=== PATIENT | female | born 1975 | race Caucasian/White ===

== ENCOUNTER 2016-10-05 10:44 | Inpatient (IN) | payer BC, OTHER ==
[~2016-10-05] VITALS: Ht 167.6 cm; Wt 90.7 kg
[2016-10-05 13:45] VITALS: BP 132/71
[2016-10-05] MEDS ORDERED: DIAZEPAM 10 MG TABLET PO PRN ×2 (13:45)
[2016-10-05] MEDS ORDERED: DIAZEPAM 5 MG TABLET PO PRN (13:45)
[2016-10-05] MEDS ORDERED: ACETAMINOPHEN 325 MG TABLET PO PRN (13:45)
[2016-10-05] MEDS ORDERED: diphenhydrAMINE 50 MG CAPSULE PO PRN (13:45)
[2016-10-05] MEDS ORDERED: LOPERAMIDE HCL 2 MG CAPSULE PO PRN ×2 (13:45)
[2016-10-05] MEDS ORDERED: MAGNESIUM HYDROXIDE 30 ML LIQUID UDC PO PRN (13:45)
[2016-10-05] MEDS ORDERED: DICYCLOMINE HCL 20 MG TABLET PO PRN (13:45)
[2016-10-05] MEDS ORDERED: ONDANSETRON 4 MG/2 ML VIAL IM PRN (13:45)
[2016-10-05] MEDS ORDERED: MIRALAX 17 GM POWD.PACK PO PRN (13:45)
[2016-10-05] MEDS ORDERED: LORAZEPAM 2 MG/1 ML VIAL IM PRN (13:45)
[2016-10-05] MEDS ORDERED: MAG HYDROX/AL HYDROX/SIMETH 30 ML LIQUID UDC PO PRN (13:45)
--- NOTE | 2016-10-05 14:00 | NUR ---
Initial Assessment Pt is A&O x 4, a 41 y/o female from [facility], admitted here for Opiate dependence r/t Heroin 6-14g IV/d with last use 1g this morning and using since 2009, Benzo r/t Xanax 12-20mg PO/d with last use last night and using since age 18 years old, Klonopin PO unknown dose with occasional use when Xanax is not available with last use unknown and Soma PO unknown dose with occasional use when Xanax is not available with last use approx. 1 week ago. Pt states that she smokes cigarettes 1.5 packs per day since age 17 and smokes Cannabis started as a teenager in unknown amount occasionally with last use unknown. Pt states that her internal/pain management physician Dr. Campbell prescribes medications Xanax and Soma; no home medications brought. HHx: Insomnia, BLE Cellulitis with pedal edema, Obesity, Anemia, Bradycardia with infected Mitral Valve (endocarditics) and Thoracentesis r/t hospital acquired MRSA causing Sepsis and MODS in August 2009, July 2016 recurrent bradycardia, PNA, Acute Respiratory Failure on a ventilator at [facility], and pt was recently transferred from [facility] by the [facility] to the [facility] 09/30/2016 with recurrent bradycardia and diagnosed with UTi. Pt denies having a history of a seizure. FHx: Father used Cocaine, Mother has possible HTN and Hypothyroidism. Pt's features are symmetrical, PERRLA 3mm, no CARRERO, dizziness, denies chest pain, no SOB, N/V/D at this time but states that she was having diarrhea last night and currently has restlessness, with anxiety, agitation. Skin is not intact with bilateral BLE's +2 on right leg and +1 on left leg, bilateral pedal edema 1+ pitting, and tracts on BUE's, BLE's and abdomen. T. 97.8 HR 63 RR 16 BP 132/71 SpO2 98% RA 0/10 pain COWS 8 CIWA 7 Addendum: 10/05/16 at 1923 by JOSHUA HERNANDEZ RN Pt attended the [facility] 2017.
[2016-10-05 14:25] LABS: *URINE HCG, QUAL NEGATIVE (NEGATIVE)
[2016-10-05] MEDS ORDERED: DIAZEPAM 10 MG TABLET PO SCH ×2 (15:00→21:00)
[2016-10-05 15:11] LABS: *AMPHETAMINE, URINE NEGATIVE (NEGATIVE); *BARBITURATE, URINE NEGATIVE (NEGATIVE); *CANNABINOID, URINE NEGATIVE (NEGATIVE); *COCCAINE, URINE NEGATIVE (NEGATIVE); *OPIATE, URINE POSITIVE (NEGATIVE); *PHENCYCLIDINE SCREEN,URINE NEGATIVE (NEGATIVE)
[2016-10-05 15:37] LABS: BASOPHILS # (AUTO) 0.1 K/uL (0.0-8.0); BASOPHILS % (AUTO) 1.5 % (0.0-2.0); EOSINOPHILS # (AUTO) 0.4 K/uL (0.0-0.7); EOSINOPHILS % (AUTO) 6.3 % (0.0-7.0); HEMATOCRIT 36.4 % (37-47); LYMPHOCYTES # (AUTO) 1.6 K/uL (20.0-40.0); LYMPHOCYTES % (AUTO) 27.2 % (20.5-51.5); MEAN CORPUSCULAR HEMOGLOBIN 28.5 UUG (27.0-31.0); MEAN CORPUSCULAR HGB CONC 33 g/dL (32.0-37.0); MEAN CORPUSCULAR VOLUME 86.6 FL (81.0-99.0); MONOCYTES # (AUTO) 0.3 K/uL (2.0-10.0); MONOCYTES % (AUTO) 4.4 % (0.0-11.0); NEUTROPHILS # (AUTO) 3.6 K/uL (1.8-8.9); NEUTROPHILS % (AUTO) 60.6 % (38.5-71.5); PLATELET COUNT (AUTO) 204 K/UL (150-450)
[2016-10-05 15:42] LABS: ETHANOL < 3 MG/DL (0-0)
[2016-10-05 15:55] LABS: ALANINE AMINOTRANSFERASE 23 U/L (14-59); ALKALINE PHOSPHATASE 62 U/L (50-136); ASPARTATE AMINOTRANSFERASE 21 U/L (15-37); BILIRUBIN,TOTAL 0.3 mg/dL (0.2-1.0); CARBON DIOXIDE 32 mmol/L (21-32); CHLORIDE 103 mmol/L (98-107); CREATININE 0.7 mg/dL (0.6-1.3); GLUCOSE 109 mg/dL (74-106); MAGNESIUM 1.8 mg/dL (1.8-2.4); POTASSIUM 3.7 mmol/L (3.5-5.1); TOTAL PROTEIN, SERUM 7.7 g/dL (6.4-8.2); UREA NITROGEN, BLOOD 4 mg/dL (7-18)
[2016-10-05 16:00] VITALS: BP 122/99
[2016-10-05 16:19] LABS: THYROID STIMULATING HORMONE 0.838 mIU/mL (0.358-3.740)
--- NOTE | 2016-10-05 16:30 | NUR ---
New Orders New order for ECHO with results EF 60% and PAP 30mm HG, EKG with results NSR with HR 68bpm, Mag-Ox, K-Dur, and 10/06/16 Chem 22 and CBC.
[2016-10-05] MEDS ORDERED: MAGNESIUM OXIDE 400 MG TABLET PO ONE (16:45)
[2016-10-05] MEDS ORDERED: POTASSIUM CHLORIDE 10 MEQ CAPSULE.SA PO ONE (16:45)
--- NOTE | 2016-10-05 18:49 | NUR ---
End of the Shift Report to night nurse: pt is 41 y/o female new admit from [place] admitted here for Opiate dependence r/t Heroin 6-14g IV/d with last use 1g this morning and using since 2009, Benzo r/t Xanax 12-20mg PO/d with last use last night and using since age 18 years old, Klonopin PO unknown dose with occasional use when Xanax is not available with last use unknown and Soma PO unknown dose with occasional use when Xanax is not available with last use approx. 1 week ago; Subutex taper to start 10/06 and PRN with a scheduled Valium taper started 10/05/16. Pt is a full code, NKA, regular diet, fall and seizure precautions ordered. HHx: Insomnia, past BLE Cellulitis with existing pedal edema, Obesity, Anemia, Bradycardia, anxiety, endocarditics, Uti, MRSA causing sepsis PNA and thoracentesis, Acute Respiratory Failure smoker and multiple relapses. Skin is not intact with bilateral BLE's +2 on right leg and +1 on left leg, bilateral pedal edema 1+ pitting, and tracts on BUE's, BLE's and abdomen. V/S stable with Echo, EkG done and results WNL's. New orders for K-Dur, Mag Ox today for boarder line electrolytes, 10/06 CBC and Chem 22. No PRN's given during my shift. Last CIWA 12. Addendum: 10/05/16 at 1855 by JOSHUA HERNANDEZ RN Error: Last
--- NOTE | 2016-10-05 18:49 | NUR ---
START OF SHIFT NOTE Patient endorsed by outgoing day shift nurse. SBAR report received. Patient is a 41 years old female admitted to [facility] on 10/05/16 for Benzodiazepines and Opioid Dependence, placed on 5 Day Valium and 5 Day Subutex Taper starting on 10/06/16. NKA, Full Code, Cardiac Diet, Fall and Seizures Precautions. No Seizures History. Past Medical History: Heart failure; Endocarditis; Cardiomyopathy; Bradycardia; Anxiety disorder; Chronic tobacco use; PNA; UTI; Obesity; Anemia; BLE Pedal edema; Cellulitis; Sepsis; MRSA; Acute Respiratory Failure; Insomnia. Past Surgical History: Therapeutic thoracentesis; Breast augmentation; Cholecystectomy; Caesarean section. Substance Use: Xanax PO: " 12-20 mg PO daily since 1993; Last use on 10/05/16". Heroin IV: "6-14 grams daily since 2009. Last used 1 gram in the morning on 10/05/16". SOMA: "Used unknown dose, occasionally, when no Xanax available". Klonopin: "Used unknown dose, occasionally, when no Xanax available". Marijuana: " Occasionally with last dose unknown". Recent Hospitalization/Treatment History: [facility] on 09/30/16. MRSA done. [facility]" , 09/22/16. Transfer to [place]". "[facility]" 07/25/16". Upon endorsement patient is alert and oriented x 4. Speech is clear and soft. COWS 7; CIWA 7: Patient's anxious, agitated , pt's yawning twice,tremors can felt, pt's nasal stuffy/moist eyes; and sweating; Patient c/o bone and joints aching, and very mild headache. Patient denied N/V, and diarrhea. Patient denied SI/HI. VS: T: 98'5; HR: 65; BP: 103/69; RA O2SAT 97%; RR: 17. Pain level " 0/10". Breathing is unlabored and even. Patient denied SOB, and chest pain. Lung Sounds are clear. BS's active in all x 4 quadrants. Skin is not intact with bilateral BLE +2 on Right leg and + 1 on Left leg; Bilateral pedal edema 1+ pitting, and tracts on BUE's, BLE's, and abdomen Patient has ordered SCD Pump for both legs for HS. Skin is warm and moist by touch. ECG done with results's WNL. No PRN's given during day shift. Patient was encouraged fluids intake. Safety measure in the place by hospital policy: Call light within reach, bed in the lowest position and locked, padded rails up x2. Will continue to monitor.
[2016-10-05] MEDS ORDERED: CARI350T PO (18:58)
[2016-10-05] MEDS ORDERED: ALPR2TAB7 PO (18:58)
[2016-10-05 20:00] VITALS: BP 103/69
[2016-10-05] MEDS: GABAPENTIN 300 MG CAPSULE PO SCH (20:43)
[2016-10-05] MEDS ORDERED: BUPRENORPHINE HCL 2 MG TAB.SUBL SL PRN (21:00)
[2016-10-06] VITALS: BP 121/62
--- NOTE | 2016-10-06 01:21 | NUR ---
PRN MOTRIN PO ADMINISTRATION Patient c/o headache "10/12". Patient was assessed. Ordered PRN Motrin PO was discussed with patient. Patient's educated for actions, adverse reactions, and side effects of Motrin. Patient returned her knowledge back by verbalizing understanding. PRN Motrin PO was administrated as ordered with full glass of water. Patient tolerated well. Safety measures in the place by hospital policy: Call light within reach; Bed in the lowest position and locked; Padded rails up x2. Will to monitor closely.
--- NOTE | 2016-10-06 03:08 | NUR ---
PRN VALIUM PO ADMINISTRATION Patient c/o increased anxiety, and ask medications. Patient was assessed. CIWA 9: patient anxious, agitated, c/o chills/flushing, and sweating, patient's tremors, running nose/tears, stomach cramps, mild headache, and restlessness. Patient denies N/V, and diarrhea. PRN Valium was discussed. Patient was educated for actions, adverse reactions, and side effects of Valium. Patient returned back her knowledge by verbalizing understanding. PRN Valium PO was administrated as ordered with full glass of water. Patient tolerated well. Safety measure in the place by hospital policy: Call light within reach, bed in the lowest position and locked, padded rails up x2. Will continue to monitor.
[2016-10-06] MEDS: ONDANSETRON ODT 4 MG TAB.RAPDIS SL PRN ×2 (03:42→08:25)
--- NOTE | 2016-10-06 03:42 | NUR ---
PRN ZOFRAN PO ADMINISTRATION Patient c/o Nausea. Patient denies Vomiting and diarrhea. Patient was assessed. PRN Zofran PO was discussed. Patient's educated for actions, adverse reactions, and side effects of ordered Zofran. Patient returned back her knowledge by verbalizing understanding. PRN Zofran PO was administrated as ordered with full glass of water. Patient tolerated well. Safety measure in the place by hospital policy: Call light within reach, bed in the lowest position and locked, padded rails up x2. Will continue to monitor.
[2016-10-06 04:00] VITALS: BP 124/75
--- NOTE | 2016-10-06 04:08 | NUR ---
REASSESSMENT Patient is sleeping. Breathing is even and unlabored. RR:14. PRN Valium PO was effective. Safety measure in the place by hospital policy: Call light within reach, bed in the lowest position and locked, padded rails up x2. Will continue to monitor.
--- NOTE | 2016-10-06 04:42 | NUR ---
REASSESSMENT Patient is sleeping. Breathing is even and unlabored. RR: 15. PRN Zofran PO was effective. Safety measure in the place by hospital policy: Call light within reach, bed in the lowest position and locked, padded rails up x2. Will continue to monitor.
--- NOTE | 2016-10-06 07:08 | NUR ---
END OF SHIFT NOTE Patient is a 41 years old female admitted to [facility] on 10/05/16 for Benzodiazepines and Opioid Dependence, placed on 5 Day Valium and 5 Day Subutex Taper starting on 10/06/16. NKA, Full Code, Cardiac Diet, Fall and Seizures Precautions. No Seizures History. Past Medical History: Heart failure; Endocarditis; Cardiomyopathy; Bradycardia; Anxiety disorder; Chronic tobacco use; PNA; UTI; Obesity; Anemia; BLE Pedal edema; Cellulitis; Sepsis; MRSA; Acute Respiratory Failure; Insomnia. Past Surgical History: Therapeutic thoracentesis; Breast augmentation; Cholecystectomy; Caesarean section. Substance Use: Xanax PO: " 12-20 mg PO daily since 1993; Last use on 10/05/16". Heroin IV: "6-14 grams daily since 2009. Last used 1 gram in the morning on 10/05/16". SOMA: "Used unknown dose, occasionally, when no Xanax available". Klonopin: "Used unknown dose, occasionally, when no Xanax available". Marijuana: " Occasionally with last dose unknown". Recent Hospitalization/Treatment History: [facility] on 09/30/16. MRSA done. [facility]" , 09/22/16. Transfer to [place]". [facility]" 07/25/16". During last awake overnight counselor COWS decreased from 9 to 4; CIWA decreased from 9 to 5: Patient's presented anxious, agitated , with tremors , nasal stuffy/moist eyes; and sweating; Patient's c/o bone and joints aching, mild headache, and nausea. Patient denied vomiting and diarrhea. Patient denied SI/HI. Last VS at 04:00: T: 98'5; HR: 53; BP: 124/75; RA O2SAT 99%; RR: 17. Pain level " 0/10". Skin is not intact with bilateral BLE +2 on Right leg and + 1 on Left leg; Bilateral pedal edema 1+ pitting, and tracts on BUE's, BLE's, and abdomen Patient's ordered SCD Pump for both legs for HS. Skin is warm and moist by touch. ECG done with results's WNL. PRN Valium PO and PRN Zofran PO given to patient , and were effective. Patient slept 10 hours, intake 500 ml, voided x2. Patient was encouraged fluids intake. Safety measure in the place by hospital policy: Call light within reach, bed in the lowest position and locked, padded rails up x2. Patient endorsed to day shift nurse in stable condition. SBAR report given.
--- NOTE | 2016-10-06 07:09 | NUR ---
Start of Shift Notes: Received patient in her room. Alert and oriented x 4. Verbally responsive. Respirations even and unlabored. No SOB noted. Skin warm and dry to touch. Abdomen soft and non-distended. No complains of abdominal discomfort noted. No complains of N/V/D or constipation noted. Voids independently. Ambulatory ad manish with steady gait. Patient is a 41 year old female admitted for opiate and BZO dependence who was placed on a 5-day Subutex and Valium taper as ordered. No adverse reactions noted. Has past medical hx of BLE cellulitis, pedal edema, obesity, anemia, bradycardia, endocarditits, sepspsis, UTI, acute respiratory failure and cardiomyopathy. NKA. FULL CODE. On cardiac diet. On fall and seizure precaution. Educated patient on her current plan of care for the day and her medication regimen. Encouraged oral fluid intake and encouraged group participation to learn new skills to prevent relapse. Will continue to monitor closely.
[2016-10-06 08:00] VITALS: BP 118/63
[2016-10-06] MEDS: BUPRENORPHINE HCL 2 MG TAB.SUBL SL SCH ×4 (08:24→20:21)
[2016-10-06] MEDS: DIAZEPAM 10 MG TABLET PO SCH ×4 (08:25→20:22)
[2016-10-06] MEDS: MULTIVITAMINS,THERAPEUTIC TABLET PO SCH (08:25)
[2016-10-06] MEDS: CLONIDINE HCL 0.1 MG TABLET PO PRN (08:25)
[2016-10-06] MEDS: METHOCARBAMOL 750 MG TABLET PO PRN ×2 (08:25→23:23)
[2016-10-06] MEDS: GABAPENTIN 300 MG CAPSULE PO SCH ×3 (08:25→20:21)
--- NOTE | 2016-10-06 08:25 | NUR ---
PRN Clondine, Zofran, Bentyl and Robaxin given: Patient noted with complain of nausea, no emesis reported. 7/10 muscle aches and pains, chills, sweats, and abdominal cramps. COWS 13. medicated patient with Zofran 4 mg, Clonidine 0.1 mg, Robaxin 750mg and Bentyl 20 mg PO. Will monitor for effectiveness.
[2016-10-06] MEDS ORDERED: TUBERCULIN,PURIF.PROT.DERIV. 5 TU/0.1 ML TEST ID ONE (09:00)
--- NOTE | 2016-10-06 09:25 | NUR ---
Re-assessment: Per patient, PRN Clonidine, Bentyl, Zofran and Robaxin were effective in reducing chlls, anxiety, hot flashes, abdominal cramps,muscle aches and nausea. Addendum: 10/06/16 at 0957 by RADHA P[address]SON LVN PL at time of re-assessment is 08/12.
--- NOTE | 2016-10-06 11:12 | NUR ---
Subutex 4mg SL x 1 and Valium 10 mg PO x 1 given: COWS 21/CIWA 18. Notified Dr. Thompson. Patient appears anxious, flushed, sweating, complains of chills, hot flashes, muscle twitching, gross tremors, frequently shifting body movement with piloerection of the skin. Dr. Thompson aware. Medicated patient with Subutex 4 mg SL and Valium 10 mg PO as ordered. Will monitor for effectiveness.
[2016-10-06] MEDS ORDERED: BUPRENORPHINE HCL 2 MG TAB.SUBL SL ONE ×2 (11:15→18:30)
[2016-10-06] MEDS ORDERED: DIAZEPAM 10 MG TABLET PO ONE ×2 (11:15→18:30)
--- NOTE | 2016-10-06 11:42 | NUR ---
Re-assessment: Subutex 4 mg SL Patient's COWS 12, less anxiety noted, skin is smooth, less tremors noted. PRN Subutex was effective in reducing patient's withdrawal symptoms.
[2016-10-06 12:00] VITALS: BP 134/73
--- NOTE | 2016-10-06 12:12 | NUR ---
Re-assessment: Valium 10 mg PO CIWA 12. Per patient, PRN Valium was effective in reducing her withdrawal symptoms. Less anxiety, less tremors and less sweating noted.
--- NOTE | 2016-10-06 12:30 | NUR ---
Subutex 4 mg SL and Valum 10 mg PO at 1300 given at this time: Patient has the above scheduled meds at this time. a x 1 dose of Valium and Subutex were just given at 1111. Verified with MD Thompson if OK to give, per MD CAMPBELL to give at this time.
--- NOTE | 2016-10-06 13:45 | NUR ---
Cardology Consult: Patient was seen and examined by Dr. Azar and will enter in orders.
[2016-10-06 15:30] LABS: BASOPHILS # (AUTO) 0.1 K/uL (0.0-8.0); BASOPHILS % (AUTO) 0.8 % (0.0-2.0); EOSINOPHILS # (AUTO) 0.2 K/uL (0.0-0.7); EOSINOPHILS % (AUTO) 3.4 % (0.0-7.0); HEMATOCRIT 38.9 % (37-47); HEMOGLOBIN 12.3 G/DL (12.0-16.0); LYMPHOCYTES # (AUTO) 1.5 K/uL (20.0-40.0); LYMPHOCYTES % (AUTO) 21.9 % (20.5-51.5); MEAN CORPUSCULAR HEMOGLOBIN 27.6 UUG (27.0-31.0); MEAN CORPUSCULAR HGB CONC 32 g/dL (32.0-37.0); MONOCYTES # (AUTO) 0.5 K/uL (2.0-10.0); MONOCYTES % (AUTO) 7.3 % (0.0-11.0); NEUTROPHILS # (AUTO) 4.4 K/uL (1.8-8.9); NEUTROPHILS % (AUTO) 66.6 % (38.5-71.5); PLATELET COUNT (AUTO) 217 K/UL (150-450); RED BLOOD CELL COUNT(AUTO) 4.47 MIL/UL (4.2-5.4); WHITE BLOOD COUNT (AUTO) 6.7 K/UL (4.0-11.2)
[2016-10-06 15:56] LABS: CREATININE 0.8 mg/dL (0.6-1.3); MAGNESIUM 2.1 mg/dL (1.8-2.4); PHOSPHOROUS 3.6 mg/dL (2.5-4.9); POTASSIUM 4.4 mmol/L (3.5-5.1)
[2016-10-06 16:00] VITALS: BP 131/74
--- NOTE | 2016-10-06 18:20 | NUR ---
MD Communication: Patient's COWS 13, CIWA 15, patient presented with sweats, frequent body shifting, abdominal cramps, appears flushed and fidgety. Communicated with MD Thompson. Orders obtained for patient to have x 1 dose of Subutex 4 mg SL x 1 now and Valium 10 mg PO x 1 now. MD unable to enter in orders at this time. Will continue to monitor closely.
--- NOTE | 2016-10-06 18:28 | NUR ---
Subutex 4mg SL x 1 and Valium 10 mg PO x 1 given: COWS 13/CIWA 15. Subutex 4 mg SL given at this time and Valium 10 mg PO given. Will monitor for effectiveness.
--- NOTE | 2016-10-06 18:58 | NUR ---
Re-assessment: Subutex 4mg SL Patient's COWS 10. PRN Subutex has been effective in reducing patient's withdrawal symptoms. Re-assessment for Valium 10 mg PO will be re-assessed by night nurse.
--- NOTE | 2016-10-06 19:02 | NUR ---
End of Shift Notes: Patient is a 41 year old female admitted for opiate and BZO dependence who was placed on a 6-day Ativan and 6-day Subutex taper as ordered. No adverse reactions noted. Has past medical hx of insomnia, BLE cellulitis, pedal edema, obesity, anemia, bradycardia, endocarditis, sepsis, MRSA, UTI, PNA, acute respiratory failyre and cardiomyopathy. Prior to admission, patient was using 6-14 grams of IV Heroin and 12-20 mg of Xanax. Initial COWS at 0800 was 13, CIWA 13, patient presented with nausea, muscle aches and pain, chills, hot flashes, sweating, facial flushing, fatigue, abdominal discomfort and anxiety. At 111 COWS 21/CIWA 18. Dr. Thompson aware and ordered Subutex 4 mg and Valium 10 mg PO x 2 doses during the day as ordered due to high COWS and CIWA. Patient seen with frequent body shifting, pupil dilation, muscle aches, and piloerection of the skin. Medicated patient with Zofran, Robaxin, Clonidine, Bentyl at 0825 with help after 1 hour. Last COWS 10, CIWA 13. Seen and examined by monotype mechanic with new orders for labs. Encouraged to keep BLE elevated due to edema. Unable to participate in group and therapy sessions due to her withdrawal symptoms. Oral fluids encouraged. All needs met and attended. Will continue to monitor closely.
--- NOTE | 2016-10-06 19:02 | NUR ---
START OF SHIFT NOTE Patient endorsed by day shift nurse. SBAR report received. Patient is a 41 years old female admitted to [facility] on 10/05/16 for Benzodiazepines and Opioid Dependence, placed on 5 Day Valium and 5 Day Subutex Taper starting on 10/06/16. NKA, Full Code, Cardiac Diet, Fall and Seizures Precautions. No Seizures History. Past Medical History: Heart failure; Endocarditis; Cardiomyopathy; Bradycardia; Anxiety disorder; Chronic tobacco use; PNA; UTI; Obesity; Anemia; BLE Pedal edema; Cellulitis; Sepsis; MRSA; Acute Respiratory Failure; Insomnia. Past Surgical History: Therapeutic thoracentesis; Breast augmentation; Cholecystectomy; Caesarean section. Substance Use: Xanax PO: " 12-20 mg PO daily since 1993; Last use on 10/05/16". Heroin IV: "6-14 grams daily since 2009. Last used 1 gram in the morning on 10/05/16". SOMA: "Used unknown dose, occasionally, when no Xanax available". Klonopin: "Used unknown dose, occasionally, when no Xanax available". Marijuana: " Occasionally with last dose unknown". Recent Hospitalization/Treatment History: [facility] on 09/30/16. MRSA done. [facility]" , 09/22/16. Transfer to [place]". "[facility]" 07/25/16". Upon endorsement patient is alert and oriented x 4. Speech is clear and soft. COWS 7; CIWA 9: Patient's anxious, agitated , tremors, pt's nasal stuffy/moist eyes; and sweating; Patient c/o bone and joints aching, and headache. Patient denied N/V, and diarrhea. Patient denied SI/HI. VS: T: 98'6; HR: 56; BP: 127/79; RA O2SaT 100%; RR: 17. Pain level " 3/10". Breathing is unlabored and even. Patient denied SOB, and chest pain. Lung Sounds are clear. BS's active in all x 4 quadrants. Skin is not intact with bilateral BLE +2 on Right leg and + 1 on Left leg; Bilateral pedal edema 1+ pitting, and tracts on BUE's, BLE's, and abdomen Patient has ordered SCD Pump for both legs for HS. Skin is warm and moist by touch. Patient was encouraged oral fluids intake. Patient unable attended activities due to withdrawal s/s. Safety measure in the place by hospital policy: Call light within reach, bed in the lowest position and locked, padded rails up x2. Will continue to monitor.
[2016-10-06 20:00] VITALS: BP 127/79
--- NOTE | 2016-10-06 20:12 | NUR ---
PRN IMODIUM PO ADMINISTRATION Patient c/o diarrhea x3. Patient was assessed. Patient was encouraged for plenty fluids intake. PRN Imodium PO discussed with patient. Patient's educated for actions, adverse reactions, and side effects of Imodium. Patient returned her knowledge back by verbalizing understanding. PRN Imodium PO was administrated as ordered with full glass of water. Patient tolerated well. Safety measures in the place by hospital policy: Call light within reach; Bed in the lowest position and locked; Padded rails up x2. Will to monitor closely. Addendum: 10/06/16 at 2330 by SOHAM RODRIGUEZ RN error: wrong patient
--- NOTE | 2016-10-06 20:21 | NUR ---
PRN BENADRYL PO ADMINISTRATION Patient c/o insomnia. Patient was assessed. Ordered PRN Benadryl PO was discussed with patient. Patient's educated for actions, adverse reactions, and side effects of Benadryl. Patient returned her knowledge back by verbalizing understanding. PRN Benadryl PO was administrated as ordered with full glass of water. Patient tolerated well. Safety measures in the place by hospital policy: Call light within reach; Bed in the lowest position and locked; Padded rails up x2. Will to monitor closely.
--- NOTE | 2016-10-06 21:21 | NUR ---
REASSESSMENT Patient is sleeping. Breathing is unlabored and even. RR: 14. PRN Benadryl PO was effective.Safety measures in the place by hospital policy:Call light within reach; Bed in the lowest position and locked; Padded rails up x2. Will to monitor closely.
--- NOTE | 2016-10-06 23:23 | NUR ---
PRN ROBAXIN PO ADMINISTRATION Patient c/o muscles spasm. Patient was assessed. Ordered PRN Robaxin PO was discussed with patient. Patient's educated for actions, adverse reactions, and side effects of Robaxin. Patient returned her knowledge back by verbalizing understanding. PRN Robaxin PO was administrated as ordered with full glass of water. Patient tolerated well. Safety measures in the place by hospital policy: Call light within reach; Bed in the lowest position and locked; Padded rails up x2. Will to monitor closely.
[2016-10-07] VITALS: BP 114/54
--- NOTE | 2016-10-07 00:23 | NUR ---
REASSESSMENT Patient is sleeping. Breathing is unlabored and even. RR:15. PRN Robaxin PO was effective. Safety measures in the place by hospital policy: Call light within reach; Bed in the lowest position and locked; Padded rails up x2. Will to monitor closely.
[2016-10-07] MEDS: IBUPROFEN 600 MG TABLET PO PRN (01:21)
[2016-10-07 04:00] VITALS: BP 123/71
--- NOTE | 2016-10-07 07:11 | NUR ---
END OF SHIFT NOTE Patient is a 41 years old female admitted to [facility] on 10/05/16 for Benzodiazepines and Opioid Dependence, placed on 5 Day Valium and 5 Day Subutex Taper starting on 10/06/16. NKA, Full Code, Cardiac Diet, Fall and Seizures Precautions. No Seizures History. Past Medical History: Heart failure; Endocarditis; Cardiomyopathy; Bradycardia; Anxiety disorder; Chronic tobacco use; PNA; UTI; Obesity; Anemia; BLE Pedal edema; Cellulitis; Sepsis; MRSA; Acute Respiratory Failure; Insomnia. Past Surgical History: Therapeutic thoracentesis; Breast augmentation; Cholecystectomy; Caesarean section. Substance Use: Xanax PO: " 12-20 mg PO daily since 1993; Last use on 10/05/16". Heroin IV: "6-14 grams daily since 2009. Last used 1 gram in the morning on 10/05/16". SOMA: "Used unknown dose, occasionally, when no Xanax available". Klonopin: "Used unknown dose, occasionally, when no Xanax available". Marijuana: " Occasionally with last dose unknown". Recent Hospitalization/Treatment History: [facility] on 09/30/16. MRSA done. [facility]" , 09/22/16. Transfer to [place]". "[facility]" 07/25/16".Last COWS 7, CIWA 7: Patient's presented anxious, agitated , with tremors , nasal stuffy/moist eyes; diarrhea, sweating, bone and joints aching, mild headache. Patient denied vomiting .Patient denied SI/HI. Last VS at 04:00: T: 98'4; HR: 60; BP: 123/71; RA O2SAT 99%; RR: 18. Pain level " 0/10". Skin is not intact with bilateral BLE +2 on Right leg and + 1 on Left leg; Bilateral pedal edema 1+ pitting, and tracts on BUE's, BLE's, and abdomen Patient's ordered SCD Pump for both legs for HS. Skin is warm and moist by touch. PRN Benadryl PO, PRN Robaxin PO, PRN Motrin, a were effective. Patient slept 5,5 hours, intake 1,437ml, voided x3. Patient was encouraged oral fluids intake. Safety measure in the place by hospital policy: Call light within reach, bed in the lowest position and locked, padded rails up x2. Patient endorsed to day shift nurse in stable condition. SBAR report given.
--- NOTE | 2016-10-07 07:30 | NUR ---
Start of shift note; Patient is AOX4. Received report from night nurse. Patient is a 41 year old female admitted on 10/05/16 for Opiate and Benzodiazepine dependence. Patient was placed on a 6 day Subutex and Valium taper, no adverse reaction noted. Patient reported history of insomnia, BLE cellulitis, anemia, bradycardia, endocarditis, sepsis, URI, PNA, acute respiratory failure and cardiomyopathy. Patient is on fall and seizure precautions. Patient appears very anxious, crying, sweaty palms redirected as needed. Bed in lowest position, call light within reach. Will continue to monitor patient.
[2016-10-07 08:00] VITALS: BP 125/74
[2016-10-07] MEDS: DIAZEPAM 10 MG TABLET PO SCH ×4 (08:28→20:20)
[2016-10-07] MEDS: GABAPENTIN 300 MG CAPSULE PO SCH ×3 (08:28→20:20)
[2016-10-07] MEDS: BUPRENORPHINE HCL 2 MG TAB.SUBL SL SCH ×4 (08:28→20:20)
[2016-10-07] MEDS: MULTIVITAMINS,THERAPEUTIC TABLET PO SCH (08:28)
[2016-10-07] MEDS ORDERED: BUPRENORPHINE HCL 2 MG TAB.SUBL SL ONE (11:15)
[2016-10-07] MEDS ORDERED: DIAZEPAM 10 MG TABLET PO PRN ×4 (11:15→14:15)
[2016-10-07] MEDS ORDERED: DIAZEPAM 10 MG TABLET PO ONE (11:15)
[2016-10-07] MEDS ORDERED: DIAZEPAM 5 MG TABLET PO PRN ×2 (11:15→14:15)
[2016-10-07] MEDS ORDERED: BUPRENORPHINE HCL 2 MG TAB.SUBL SL PRN ×2 (11:15→14:15)
--- NOTE | 2016-10-07 11:39 | NUR ---
New orders; Patient still appears to anxious, agitated, complaining of muscle aches, chills and diaphoresis. Patient current BP is 122/76 with HR of 65, COWS of 8 and CIWA of 8. MD ordered one time dose of Valium 10mg PO and one time order of Subutex 4mg SL. Will continue to monitor patient.
[2016-10-07 12:00] VITALS: BP 126/77
--- NOTE | 2016-10-07 12:39 | NUR ---
Re-assessment; Patient appears calm and comfortable at this time although still manifesting mild anxiety and agitation, decrease in chill/diaphoresis noted, less muscle cramps verbalized with current COWS score of 5 and CIWA score of 4. Will continue to monitor patient.
[2016-10-07 13:06] LABS: HEPATITIS B SURFACE AG Negative (Negative)
--- NOTE | 2016-10-07 14:28 | NUR ---
MD communication and new order; MD notified of patient's LAB results and MRSA nares result, MD placed patient on contact isolation and ordered Bactroban 2% ointment Q12HR. Educated patient regarding MRSA and infection control, patient verbalized understanding.
[2016-10-07] MEDS: DICYCLOMINE HCL 20 MG TABLET PO SCH ×2 (15:48→20:20)
[2016-10-07] MEDS: BACLOFEN 10 MG TABLET PO SCH ×2 (15:48→20:20)
--- NOTE | 2016-10-07 15:58 | NUR ---
LAB staff communication; Received a phone call from LAB regarding MRSA result. MD was notified already, patient was already placed on contact isolation and on Bactroban treatment Q12H. Will continue to monitor patient.
[2016-10-07 16:00] VITALS: BP 130/88
--- NOTE | 2016-10-07 18:26 | NUR ---
End of shift note; Patient is AOX4. Patient is a 41 year old female admitted on 10/05/16 for Opiate and Benzodiazepine dependence. Patient was placed on a 6 day Subutex and Valium taper, no adverse reaction noted. Patient reported history of insomnia, BLE cellulitis, anemia, bradycardia, endocarditis, sepsis, URI, PNA, acute respiratory failure and cardiomyopathy. Patient is on fall and seizure precautions. Patient remained compliant with medication regime. Medications were effective in reducing withdrawal symptoms. Patient was placed on contact isolation for MRSA nares positive, educated patient regarding infection control, verbalized understanding. Isolation precautions observed. All safety measures secured. Met all needs. Addendum: 10/07/16 at 1907 by SONYA RODRIGUEZ LVN Patient is has a tendency to be a med-seeker and has a tendency to show inappropriate behavior. Redirected patient as needed. Educated patient regarding unit policies and protocols.
--- NOTE | 2016-10-07 19:10 | NUR ---
Start of Shift Patient Received. Patient is in her room, awake, alert and verbally responsive. Patient verbalizing "I need my medications. I dont feel good." Explained to patient that medications were due at approx 1999. Patient verbalized "ill just go outside to smoke." Patient is a 41 year old female, admitted on 10/05/16 for Opiate and Benzo Dependence, under the care of Dr. Thompson. Patient is currently receiving both 6 day Valium and Subutex tapers. Patient verbalizes no known allergies, wishes to be full code, following a regular diet, placed on fall and seizure precautions. Past medical history verbalized as Heart failure, Bradycardia, Anxiety disorder, Obesity, Edema, anemia, endocarditis, sepsis, MRSA, UTI, and PNA. Per endorsement, patient was placed on 1:1 for positive result for MRSA of Nares and will start on Bactroban Q12h with first dose to be given tonight 2100. Patient is noted with episodes of inappropriate behavior, medication seeking, and high risk for AMA. All needs attended to promptly. will continue to monitor.
[2016-10-07 20:18] VITALS: BP 138/85
[2016-10-07] MEDS: MUPIROCIN 2% OINT 22 GM TUBE NS SCH (20:20)
--- NOTE | 2016-10-07 20:30 | NUR ---
MD Communication Patient verbalizing increase nasal congestion. Relayed information to MD with new order for Flonase BID with first dose to be given tonight 2030. Will administer medication when available.
[2016-10-07] MEDS ORDERED: TRAZODONE 100 MG TABLET PO SCH (21:00)
[2016-10-07] MEDS: FLUTICASONE PROP NASAL SPRAY 16 GM BOTTLE NS SCH (21:21)
[2016-10-08] VITALS (8 sets, daily range): BP systolic 94–138; BP diastolic 48–95
[2016-10-08] MEDS: METHOCARBAMOL 750 MG TABLET PO PRN (03:39)
[2016-10-08] MEDS: HYDROXYZINE PAMOATE 25 MG CAPSULE PO PRN (03:39)
[2016-10-08] MEDS: CLONIDINE HCL 0.1 MG TABLET PO PRN ×2 (03:39→14:25)
--- NOTE | 2016-10-08 03:40 | NUR ---
PRN Medication Reassessment/ PRN Medication administration Patient noted awake and verbalizing "this happens every single night. I wake up feeling like crap." Patient noted to be restless, verbalizing increased anxiety, noted to be agitated, and verbalizing muscle spasms of the lower back. Patient also verbalizing inability of falling back to sleep. PRN Clonidine, Robaxin, Vistaril administered. PRN Trazodone not effective. Will continue to monitor.
--- NOTE | 2016-10-08 04:36 | NUR ---
PRN Medication Reassessment Patient noted awake in bed eating cereal. Patient able to verbalize "the medication helped but I still cant sleep." PRN Clonidine, Robaxin, and Vistaril noted to be effective. Will continue to monitor.
--- NOTE | 2016-10-08 07:07 | NUR ---
End of Shift Patient is in bed awake, alert and verbally responsive. Breathing even and non labored. No signs of pain or discomfort noted. Patient is a 41 year old female, admitted on 10/05/16 for Opiate and Benzo Dependence, under the care of Dr. Thompson. Patient is currently receiving both 6 day Valium and Subutex tapers. Patient verbalizes no known allergies, full code, regular diet, fall and seizure precautions. Past medical history verbalized as Heart failure, Bradycardia, Anxiety disorder, Obesity, Edema, anemia, endocarditis, sepsis, MRSA, UTI, and PNA. Patient remains on Isolation for positive result of MRSA of nares. Patient started on Bactroban Q12h. Patient was given PRN Clonidine, Vistaril, and Robaxin for increased signs and symptoms of withdrawal. PRN Medications noted to be effective. Patient noted awake with inability of falling back asleep and is requesting for a change in sleep aid. Will endorse to AM shift to follow up. No episodes of behavior noted. All needs attended to promptly. Will endorse to continue plan of care as ordered.
--- NOTE | 2016-10-08 07:08 | NUR ---
Start of Shift Notes: Received patient in her room. Alert and oriented x 4. Verbally responsive. Respirations even and unlabored. No SOB noted. Skin warm and dry to touch. Abdomen soft and non-distended. No complains of abdominal discomfort noted. No complains of N/V/D or constipation noted. Voids independently. Ambulatory ad manish with steady gait. Patient is a 41 year old female admitted for opiate and BZO dependence who was placed on a 5-day Subutex and Valium taper as ordered. No adverse reactions noted. Has past medical hx of BLE cellulitis, pedal edema, obesity, anemia, bradycardia, endocarditits, sepspsis, UTI, acute respiratory failure and cardiomyopathy. NKA. FULL CODE. On cardiac diet. Educated patient on her current plan of care for the day and her medication regimen. Patient is on contact isolation for MRSA of the nares. All needs met and attended. Will continue to monitor closely.
[2016-10-08] MEDS: DICYCLOMINE HCL 20 MG TABLET PO SCH ×3 (08:18→22:36)
[2016-10-08] MEDS: GABAPENTIN 300 MG CAPSULE PO SCH ×3 (08:18→22:37)
[2016-10-08] MEDS: BUPRENORPHINE HCL 2 MG TAB.SUBL SL SCH ×3 (08:18→22:37)
[2016-10-08] MEDS: MULTIVITAMINS,THERAPEUTIC TABLET PO SCH (08:18)
[2016-10-08] MEDS: DIAZEPAM 10 MG TABLET PO SCH ×3 (08:18→22:37)
[2016-10-08] MEDS: BACLOFEN 10 MG TABLET PO SCH ×3 (08:18→22:37)
[2016-10-08] MEDS: MUPIROCIN 2% OINT 22 GM TUBE NS SCH ×2 (08:18→22:36)
[2016-10-08] MEDS: FLUTICASONE PROP NASAL SPRAY 16 GM BOTTLE NS SCH ×2 (08:19→17:00)
--- NOTE | 2016-10-08 09:00 | NUR ---
Hep C Results: Hep C results shows >11.0. Notified Dr. Junior. Per Md, he will speak to the patient.
--- NOTE | 2016-10-08 10:00 | NUR ---
MD Communication: Behavior Patient noted to come to the nurses station and stated "I want more meds." Reinforcement was provided to the patient. Patient was medicated with her scheduled meds at 0800 but patient still wanted more stating "I don't feel good." VS checked and are stable. COWS 5, CIWA 4. Patient was informed of her medication regimen but demanded to speak with Dr. Thompson. Informed the patient that Dr. Junior was supervisor production but patient continues to demand for Dr. Thompson to be called. Stated "Tell Dr. Thompson I want to talk to him now even though he is not working today." Dr. Junior was informed of patient's behavior and will speak to the patient.
--- NOTE | 2016-10-08 12:00 | NUR ---
Behavior: Patient comes to the nurses station again and demanded for more meds. Patient started to become rude to the staff by using foul language and being overly demanding. VS checked 102/58, Pulse 60. Patient was also seen by speaking to her peers about her drug use, how much milligrams of Subutex she was taking and also what to do to get more Subutex. Patient was immediately redirected and informed of unit's rules. Patient was becoming rude to the staff and would also talk to her about meds. Charge nurse and MD informed.
[2016-10-08 12:24] LABS: BILIRUBIN,DIRECT 0.1 mg/dL (0.0-0.2); BILIRUBIN,TOTAL 0.2 mg/dL (0.2-1.0); CREATININE 0.8 mg/dL (0.6-1.3); MAGNESIUM 1.9 mg/dL (1.8-2.4); PHOSPHOROUS 4.6 mg/dL (2.5-4.9); TOTAL PROTEIN, SERUM 8.2 g/dL (6.4-8.2)
[2016-10-08 13:40] LABS: HEMOGLOBIN 12.8 G/DL (12.0-16.0); MEAN CORPUSCULAR HEMOGLOBIN 28.3 UUG (27.0-31.0); MEAN CORPUSCULAR VOLUME 86.4 FL (81.0-99.0); RED BLOOD CELL COUNT(AUTO) 4.52 MIL/UL (4.2-5.4); WHITE BLOOD COUNT (AUTO) 5.6 K/UL (4.0-11.2)
[2016-10-08 13:42] LABS: BASOPHILS % (AUTO) 0.7 % (0.0-2.0); EOSINOPHILS # (AUTO) 0.6 K/uL (0.0-0.7); LYMPHOCYTES # (AUTO) 1.9 K/uL (20.0-40.0); LYMPHOCYTES % (AUTO) 34.9 % (20.5-51.5); MEAN CORPUSCULAR HGB CONC 33 g/dL (32.0-37.0); MONOCYTES # (AUTO) 0.7 K/uL (2.0-10.0); NEUTROPHILS # (AUTO) 2.4 K/uL (1.8-8.9); NEUTROPHILS % (AUTO) 42.4 % (38.5-71.5); PLATELET COUNT (AUTO) 224 K/UL (150-450)
--- NOTE | 2016-10-08 14:00 | NUR ---
Behavior: Patient started to use foul language again and acting inappropriately while nurse is inside her room. Patient was redirected and was informed of facility rules and medication regimen. Patient appears upset that she was not getting enough Subutex. Dr. Junior in the unit and informed MD of patient's behavior and MD spoke to the patient. aligning inspector, Mike, was informed.
--- NOTE | 2016-10-08 17:50 | NUR ---
Flonase at 1700 not administered: Patient seen laying in bed with eyes closed. RR 16. Flonase at 1700 was held. MD matta.
--- NOTE | 2016-10-08 18:14 | NUR ---
ID Consult: Patient was seen by Dr. Aranda (infections disease MD) with new orders. Orders noted and carried out. Crystal (pillowcase folder) made aware of request for medical records.
--- NOTE | 2016-10-08 18:44 | NUR ---
End of Shift Notes: Patient is a 41 year old female admitted for opiate and BZO dependence who was placed on a 6-day Ativan and 6-day Subutex taper as ordered. No adverse reactions noted. Has past medical hx of insomnia, BLE cellulitis, pedal edema, obesity, anemia, bradycardia, endocarditis, sepsis, MRSA, UTI, PNA, acute respiratory failyre and cardiomyopathy. Prior to admission, patient was using 6-14 grams of IV Heroin and 12-20 mg of Xanax. Initial COWS 9, CIWA 7, patient presented with muscle aches and pain, chills, hot flashes, sweating, facial flushing, fatigue, abdominal discomfort and anxiety. Last COWS 4/CIWA 4. Encouraged to keep BLE elevated due to edema. Unable to participate in group and therapy sessions due to her withdrawal symptoms. Patient appears to med seek, asking for more medications and attempting to manipulate her symptoms. Redirected and reassurance was provided. Reinforcement of facility rules were made. Oral fluids encouraged. All needs met and attended. Will continue to monitor closely.
--- NOTE | 2016-10-08 19:10 | NUR ---
Start of Shift Patient Received. Patient is in her room sleeping, breathing even and non labored. No signs of pain or discomfort noted. Patient is a 41 year old female, admitted on 10/05/16 for Opiate and Benzo Dependence, under the care of Dr. Thompson. Patient is currently receiving both 6 day Valium and Subutex tapers. Patient verbalizes no known allergies, wishes to be full code, following a regular diet, placed on fall and seizure precautions. Past medical history verbalized as Heart failure, Bradycardia, Anxiety disorder, Obesity, Edema, anemia, endocarditis, sepsis, MRSA, UTI, and PNA. Per endorsement, patient was placed on isolation for MRSA of Nares and continues on Bactroban Q12H. Patient continues with inappropriate behavior towards staff members, also noted to be medication seeking, and threatening to leave AMA if medications are not received. Patients lab resulted and patient is noted to be Hep C+ with MD aware. All needs attended to promptly. will continue to monitor.
--- NOTE | 2016-10-08 20:30 | NUR ---
Patient Assessment Patient noted sleeping and attempted to administer medication multiple times. Vitals rendered and noted to be lower than parameters ordered. Will continue to monitor.
--- NOTE | 2016-10-08 21:50 | NUR ---
Late Medication Administration Patient then noted awake with increased agitation, and requesting her scheduled medication. Attempted to reassess patient but patient requesting to use the bathroom and change her clothes. Vitals reassessed and noted to be within normal limits. Medications administered as ordered. All needs attended to promptly. Will continue to monitor.
[2016-10-08] MEDS: TRAZODONE 100 MG TABLET PO SCH (22:36)
[2016-10-09 00:20] VITALS: BP 112/56
[2016-10-09 04:13] VITALS: BP 109/68
[2016-10-09] MEDS: HYDROXYZINE PAMOATE 25 MG CAPSULE PO PRN (04:15)
[2016-10-09] MEDS: CLONIDINE HCL 0.1 MG TABLET PO PRN ×2 (04:15→10:42)
[2016-10-09] MEDS: METHOCARBAMOL 750 MG TABLET PO PRN ×2 (04:15→10:42)
--- NOTE | 2016-10-09 04:23 | NUR ---
PRN Medication Administration Patient noted awake and verbalizing increased muscle spasms of the lower leg, increased anxiety, and agitation due to patients inability of remaining asleep throughout the night. Patient verbalizes "I dont understand I just cant sleep. Im wide awake. I dont feel good." PRN Clonidine, Vistaril, and Robaxin administered. PRN Trazodone not effective. Patient then noted to go outside to smoke. Will continue to monitor.
--- NOTE | 2016-10-09 07:16 | NUR ---
End of Shift Patient is awake, alert and verbally responsive. Breathing even and non labored. Patient is a 41 year old female, admitted on 10/05/16 for Opiate and Benzo Dependence, under the care of Dr. Thompson. Patient is currently receiving both 6 day Valium and Subutex tapers. Patient verbalizes no known allergies, full code, following a regular diet, placed on fall and seizure precautions. Past medical history verbalized as Heart failure, Bradycardia, Anxiety disorder, Obesity, Edema, anemia, endocarditis, sepsis, MRSA, UTI, and PNA. Patient continues on isolation for MRSA of the Nares and continues on Bactroban Q12H. No episodes of behavior noted but patient verbalizes "I just feel like my taper is moving to quickly and Im just feeling sick. Im still not sleeping at night and its making this very difficult." Patient Received PRN Clonidine, Robaxin, and Vistaril and patient states "it didn't take away all the symptoms it just minimized it to tolerable but they are still there." Patient continues to be a high risk for AMA. All needs attended to promptly. will endorse to continue to monitor.
--- NOTE | 2016-10-09 07:44 | NUR ---
START OF SHIFT NOTE: Received report from night warehouse selector nurse. Patient is a 41 year old female, admitted on 10/05/16 for Opiate and Benzo Dependence. Currently on a 6 day Valium and 6 day Subutex tapers. Pt is alert and oriented x4. Color good, skin warm and dry. Respirations even and unlabored. Safety precautions observed. Call light within reach. Will continue to monitor.
[2016-10-09 08:00] VITALS: BP 128/76
[2016-10-09] MEDS ORDERED: BUPRENORPHINE HCL 2 MG TAB.SUBL SL SCH ×3 (09:00→17:00)
--- NOTE | 2016-10-09 09:00 | NUR ---
VSS CIWA 16 COWS 10. Pt very anxious and agitated. Dr. Junior aware.
[2016-10-09] MEDS: DIAZEPAM 5 MG TABLET PO SCH ×4 (09:29→20:56)
[2016-10-09] MEDS: FLUTICASONE PROP NASAL SPRAY 16 GM BOTTLE NS SCH ×2 (09:29→16:57)
[2016-10-09] MEDS: DICYCLOMINE HCL 20 MG TABLET PO SCH ×3 (09:29→20:56)
[2016-10-09] MEDS: GABAPENTIN 300 MG CAPSULE PO SCH ×3 (09:29→20:55)
[2016-10-09] MEDS: BACLOFEN 10 MG TABLET PO SCH ×3 (09:29→20:56)
[2016-10-09] MEDS: MULTIVITAMINS,THERAPEUTIC TABLET PO SCH (09:29)
[2016-10-09] MEDS: MUPIROCIN 2% OINT 22 GM TUBE NS SCH ×2 (09:30→20:59)
--- NOTE | 2016-10-09 10:30 | NUR ---
Robaxin 750mg po prn and Clonidine 0.1mg po prn given for body aches.
--- NOTE | 2016-10-09 11:30 | NUR ---
Pt states muscle aches decreased after Clonidine and Robaxin prn.
[2016-10-09] MEDS: BUPRENORPHINE HCL 2 MG TAB.SUBL SL SCH ×2 (13:19→20:57)
--- NOTE | 2016-10-09 13:21 | NUR ---
VSS COWS 9 CIWA 10 c/o body aches and anxiety along with agitation.
[2016-10-09 13:38] VITALS: BP 98/72
--- NOTE | 2016-10-09 16:59 | NUR ---
VSS COWS 12 CIWA 11 c/o anxiety, chills, runny nose body aches
[2016-10-09 18:08] VITALS: BP 112/60
--- NOTE | 2016-10-09 18:47 | NUR ---
END OF SHIFT NOTE: Report given to shift mechanic nurse . Patient is a 41 year old female, admitted on 10/05/16 for Opiate and Benzo Dependence. Currently on a 6 day Valium and 6 day Subutex tapers. Tolerating well. Pt is alert and oriented x4. Color good, skin warm and dry. Respirations even and unlabored. Vital signs have remained stable throughout shift. Robaxin 750mg po prn and Clonidine 0.1mg po prn given for body aches @ 1030. Last COWS 12 CIWA 11@ 1700. Safety precautions observed. Call light within reach.
--- NOTE | 2016-10-09 19:30 | NUR ---
START OF SHIFT Received report from day shift,Patient is a 41 year old female, admitted on 10/05/16 for Opiate and Benzo Dependence. Currently on a 6 day Valium and 6 day Subutex tapers. Tolerating well. Pt is alert and oriented x4. Color good, skin warm and dry. Respirations even and unlabored. Vital signs have been stable. Last COWS 12 CIWA 11@ 1700. Safety precautions observed. Side rails X 2 up, call light within reach, bed locked in lowest positions. Will continue to monitor.
[2016-10-09 20:00] VITALS: BP 110/65
[2016-10-09] MEDS: QUETIAPINE FUMARATE 100 MG TABLET PO SCH (20:55)
[2016-10-09] MEDS: TRAZODONE 100 MG TABLET PO SCH (20:56)
[2016-10-09] MEDS: KETOROLAC TROMETHAMINE 30 MG INJ IM PRN (20:58)
--- NOTE | 2016-10-09 21:00 | NUR ---
PRN MED. PT C/O GENERALIZED BODYACHE.REPORTED PAIN LEVEL 10/10.PRN MED.TORADOL GIVEN ORDERED.WILL CONTINUE TO MONITOR FOR EFFECTIVENESS.
--- NOTE | 2016-10-09 22:00 | NUR ---
PRN F/U PT VERBALIZES A DECREASE IN PAIN LEVEL.PAIN LEVEL IS 2/10 AT THIS TIME.PT IS RESTING IN BED GETTING READY TO SLEEP.NO S/S OF DISTRESS NOTED.WILL BE MONITORED.
[2016-10-10] VITALS (7 sets, daily range): BP systolic 102–131; BP diastolic 55–84
[2016-10-10] MEDS: KETOROLAC TROMETHAMINE 30 MG INJ IM PRN ×3 (04:45→23:47)
--- NOTE | 2016-10-10 04:45 | NUR ---
PRN TORADOL IM GIVEN ORDERED FOR C/O GENERALIZED BODYACHE PER PT REQUEST.PAIN LEVEL IS 10/10.WILL MONITOR.
--- NOTE | 2016-10-10 05:00 | NUR ---
O2 SAT IS 92 %.MD NOTIFIED.PT STARTED ON 2 LIT.OXYGEN VIA NASAL CANULA.TOLERATING WELL.WILL MONITOR.
--- NOTE | 2016-10-10 05:41 | NUR ---
OXYGEN SATURATION IS 95% ON 2 LITERS OF OXYGEN VIA NASAL CANULA.
--- NOTE | 2016-10-10 06:47 | NUR ---
END OF SHIFT Patient is a 41 year old female, admitted on 10/05/16 for Opiate and Benzo Dependence. Currently on a 6 day Valium and 6 day Subutex tapers. Tolerating well. Pt is alert and oriented x4. Color good, skin warm and dry. Respirations even and unlabored. Vital signs have been stable. Last COWS 4 CIWA 4 @ 0600.PRN Toradol IM was given X 2 for generalized body ache.Pt was started on 2 litres of oxygen via nasal canula for Oxygen saturation of 92% with good effect.Oxygen level increased to 95%.Pt slept 9 hrs,fluid intake was 2079 mls,voided x 2 .Pt has been using SCD pumps on bilateral lower extremeties as ordered. Safety precautions observed. Side rails X 2 up, call light within reach, bed locked in lowest positions. Will continue to monitor.
--- NOTE | 2016-10-10 07:30 | NUR ---
Start of the Shift Report from night nurse: pt is 41 y/o female new admit from [place] admitted here for Opiate dependence r/t Heroin 6-14g IV/d, Benzo r/t Xanax 12-20mg PO/d, Klonopin PO unknown dose with occasional use when Xanax is not available and Soma PO unknown dose with occasional use when Xanax is not available; 6 day Subutex and 6 day Valium tapers ordered. Pt is a full code, NKA, regular diet, fall and seizure precautions ordered. HHx: Insomnia, past BLE Cellulitis with existing pedal edema, Obesity, Anemia, Bradycardia, anxiety, endocarditics, Uti, MRSA causing sepsis PNA and thoracentesis, Acute Respiratory Failure smoker and multiple relapses. Skin is not intact with bilateral BLE's +2 on right leg and +1 on left leg, bilateral pedal edema 1+ pitting, and tracts on BUE's, BLE's and abdomen. V/S stable. PRN Toradol 30mg IM given this morning at 0445am. Last COWS 4 CIWA 4. Pt is asleep in room. Will cont. to monitor the pt.
[2016-10-10] MEDS: GABAPENTIN 300 MG CAPSULE PO SCH ×3 (08:47→23:48)
[2016-10-10] MEDS: DIAZEPAM 5 MG TABLET PO SCH ×3 (08:47→23:47)
[2016-10-10] MEDS: BACLOFEN 10 MG TABLET PO SCH ×3 (08:47→23:47)
[2016-10-10] MEDS: MULTIVITAMINS,THERAPEUTIC TABLET PO SCH (08:47)
[2016-10-10] MEDS: IBUPROFEN 600 MG TABLET PO PRN (08:47)
[2016-10-10] MEDS: FLUTICASONE PROP NASAL SPRAY 16 GM BOTTLE NS SCH ×2 (08:47→16:52)
[2016-10-10] MEDS: DICYCLOMINE HCL 20 MG TABLET PO SCH ×3 (08:47→23:48)
[2016-10-10] MEDS: MUPIROCIN 2% OINT 22 GM TUBE NS SCH ×2 (08:58→23:46)
[2016-10-10] MEDS ORDERED: BUPRENORPHINE HCL 2 MG TAB.SUBL SL SCH ×2 (09:00)
[2016-10-10 12:59] LABS: BASOPHILS % (AUTO) 0.2 % (0.0-2.0); EOSINOPHILS # (AUTO) 0.3 K/uL (0.0-0.7); EOSINOPHILS % (AUTO) 2.1 % (0.0-7.0); HEMATOCRIT 40.3 % (37-47); HEMOGLOBIN 13.2 G/DL (12.0-16.0); LYMPHOCYTES # (AUTO) 1.5 K/uL (20.0-40.0); LYMPHOCYTES % (AUTO) 9.6 % (20.5-51.5); MEAN CORPUSCULAR HEMOGLOBIN 27.9 UUG (27.0-31.0); MEAN CORPUSCULAR HGB CONC 33 g/dL (32.0-37.0); MEAN CORPUSCULAR VOLUME 85.2 FL (81.0-99.0); MONOCYTES # (AUTO) 0.2 K/uL (2.0-10.0); NEUTROPHILS # (AUTO) 13.5 K/uL (1.8-8.9); NEUTROPHILS % (AUTO) 87.1 % (38.5-71.5); PLATELET COUNT (AUTO) 211 K/UL (150-450); RED BLOOD CELL COUNT(AUTO) 4.73 MIL/UL (4.2-5.4)
[2016-10-10 13:06] LABS: POTASSIUM 4.9 mmol/L (3.5-5.1); WHITE BLOOD COUNT (AUTO) 15.5 K/UL (4.0-11.2)
[2016-10-10 13:18] LABS: BAND % (MANUAL) 7 % (0-10); EOSINOPHILS % (MANUAL) 2 % (0-8); LYMPHOCYTES % (MANUAL) 9 % (20-40); MONOCYTES % (MANUAL) 6 % (2-10); NEUTROPHILS % (MANUAL) 76 % (42-75)
[2016-10-10] MEDS ORDERED: IV NS 1000 ML 1,000 ML IV ONE (14:00)
[2016-10-10] MEDS ORDERED: VANCOMYCIN IV 1,250 MG in IV DEXTROSE 5% 500 ML IV SCH (15:00)
[2016-10-10] MEDS ORDERED: IV NS 1000 ML 1,000 ML IV PRN (15:00)
[2016-10-10] MEDS: BUPRENORPHINE HCL 2 MG TAB.SUBL SL SCH ×2 (16:53→23:48)
[2016-10-10] MEDS: PIPERACILLIN/TAZOBACTAM/D5W 3.375 G in PREMIXED 1 EACH IV SCH ×2 (16:55→23:46)
--- NOTE | 2016-10-10 17:10 | NUR ---
PRN Medication Administration Pt is in room very anxious and agitated c/o generalized pain 8/10; PRN Toradol 30mg IM given as ordered. Will reassess pt in 1H.
--- NOTE | 2016-10-10 17:22 | NUR ---
Clinical pharmacy note-Vancomycin dosing per pharmacy Subjective: To start Vancomycin dosing on this 41 year old patient for productive cough/ leukocytosis(R/O IE vs HCAP) ID noted that patient had history of MRSA endocarditis and pneumonia Objective: BUN 19 Scr 1.0 WBC 15.5 Temp 98.3 Ht 5'6" Wt 200 lbs Assessment/Plan: Will start Vancomycin 1250mg IV every 13hrs(originally scheduled to start at 1500 but IV access was not available until later. RN requested to change time of first administration to today at 1830). Will draw trough by 4th dose(note ordered yet) for expected trough around 16. Will monitor renal function daily to adjust the dose is needed. Will follow daily.
[2016-10-10] MEDS: VANCOMYCIN IV 1,250 MG in IV DEXTROSE 5% 500 ML IV SCH (18:12)
--- NOTE | 2016-10-10 18:17 | NUR ---
Reassessment Pt returned from dinner and smoke break and states that pain decreased from 8/10 to 2/10 pain; Toradol is effective. Will cont. to monitor the pt.
--- NOTE | 2016-10-10 19:30 | NUR ---
Start of Shift Note: Patient is a 41 y/o female admitted on 10/05/16 for Opiate and Benzo dependence. Patient with past medical history of Insomnia, past BLE Cellulitis with existing pedal edema, Obesity, Anemia, Bradycardia, anxiety, endocarditics, Uti, MRSA causing sepsis PNA and thoracentesis, Acute Respiratory Failure, Cardiomyopathy & Hep C. Seizure and Fall precaution. Patient is on a Cardiac diet with no known food and drug allergies. Full Code status. Patient is on contact isolation for positive MRSA in nares. Pt with 22 gauge IV access on left forearm patent and intact with running IV fluids NS @ 125 cc/hr. Pt is on IV ATB Zosyn & Vancomycin for elevated WBC. Last Cows is 9 CIWA 5 noted. PRN Toradol was given during day shift. Upon assessment, pt appears sedated. Pt is hard to arouse. Pt able to state her name and date of but unable to say place and time. No shortness of breath noted. Abdomen soft & non-distended. No bilateral hand tremors noted. No s/s of distress noted. Safety precautions are in place. Bed locked in lowest position. Both side rails up. Call light within pts reach. Will continue to monitor patient.
--- NOTE | 2016-10-10 19:39 | NUR ---
End of the Shift Report to night nurse: pt is 41 y/o female here for Opiate dependence r/t Heroin 6-14g IV/d, Benzo r/t Xanax 12-20mg PO/d, Klonopin PO unknown dose with occasional use when Xanax is not available and Soma PO unknown dose with occasional use when Xanax is not available; 6 day Subutex and 6 day Valium tapers ordered. Pt is a full code, NKA, regular diet, fall and seizure precautions ordered. HHx: Insomnia, past BLE Cellulitis with existing pedal edema, Obesity, Anemia, Bradycardia, anxiety, endocarditics, Uti, MRSA causing sepsis PNA and thoracentesis, Acute Respiratory Failure smoker and multiple relapses. Skin is not intact with bilateral BLE's +2 on right leg and +1 on left leg, bilateral pedal edema 1+ pitting, and tracts on BUE's, BLE's and abdomen. V/S stable. PRN Toradol 30mg IM given at 1710p. New lab results with elevated WBC 15.[address] Thompson with new orders for IV ATBx and NS Bolus and NS at 125cc/H s/p. New orders for CXR, Sputum culture and blood culture obtained during my shift with results in process. New orders for 10/11 Chem 22 and CBC. Pt was excused from attending group therapy for infection tx given as ordered. No hallucinations, delusions or suicidal ideations noted. Last COWS 9 CIWA 5.
--- NOTE | 2016-10-10 21:00 | NUR ---
Patient noted to be sedated and hard to arouse. Medication held at this time. Vitals remains WNL. Dr. Thompson is aware.
--- NOTE | 2016-10-10 23:46 | NUR ---
PRN Medication Administration Pt is in room appears anxious and complaining of 8/10 generalized body aches PRN Toradol 30mg IM given as ordered. Will monitor for effectiveness of medication.
--- NOTE | 2016-10-10 23:46 | NUR ---
Patient is awake at this time and vitals WNL. COWS 7 CIWA 5. Pt is asking for her medication. 2100 scheduled medications administered as ordered. Will continue to monitor.
[2016-10-10] MEDS: QUETIAPINE FUMARATE 100 MG TABLET PO SCH (23:47)
[2016-10-10] MEDS: TRAZODONE 100 MG TABLET PO SCH (23:47)
--- NOTE | 2016-10-11 00:46 | NUR ---
PRN Reassessment Patient is asleep at this time and appears comfortable. No facial grimacing noted. No s/s of distress. Safety precautions are in place. Will continue to monitor patient.
[2016-10-11 04:00] VITALS: BP 118/66
[2016-10-11] MEDS: PIPERACILLIN/TAZOBACTAM/D5W 3.375 G in PREMIXED 1 EACH IV SCH ×2 (05:41→13:08)
[2016-10-11] MEDS: VANCOMYCIN IV 1,250 MG in IV DEXTROSE 5% 500 ML IV SCH (06:31)
--- NOTE | 2016-10-11 07:16 | NUR ---
End of Shift Note: Patient is a 41 y/o female admitted on 10/05/16 for Opiate and Benzo dependence. Patient with past medical history of Insomnia, past BLE Cellulitis with existing pedal edema, Obesity, Anemia, Bradycardia, anxiety, endocarditics, Uti, MRSA causing sepsis PNA and thoracentesis, Acute Respiratory Failure, Cardiomyopathy & Hep C. Seizure and Fall precaution. Patient is on a Cardiac diet with no known food and drug allergies. Full Code status. Patient is on contact isolation for positive MRSA in nares. Pt with 22 gauge IV access on left forearm patent and intact with running IV fluids NS @ 125 cc/hr. Pt is on IV ATB Zosyn & Vancomycin for elevated WBC. Last Cows is 7 CIWA 5 noted. PRN Toradol was given during my shift and was effective. Pt was placed on O2 Therapy @ 2lpm to maintain O2sat>92%. No violent behavior was observed last night. Pt compliant with treatment plan. Pt remained afebrile and vitals WNL. Pt was able to sleep for a total of 9 hours. Pt consumed 350ml of fluids. Voided 1x with no bowel movement noted. All needs attended & met. Safety precautions are in place. Bed locked in lowest position. Both side rails up. Call light within pts reach. Will endorse pt to day shift nurse.
[2016-10-11 07:23] LABS: BASOPHILS % (AUTO) 0.3 % (0.0-2.0); EOSINOPHILS # (AUTO) 0.5 K/uL (0.0-0.7); EOSINOPHILS % (AUTO) 6.4 % (0.0-7.0); HEMATOCRIT 35.1 % (37-47); HEMOGLOBIN 11.6 G/DL (12.0-16.0); LYMPHOCYTES # (AUTO) 1.3 K/UL (0.8-4.8); LYMPHOCYTES % (AUTO) 17.7 % (20.5-51.5); MEAN CORPUSCULAR HEMOGLOBIN 28.7 UUG (27.0-31.0); MEAN CORPUSCULAR HGB CONC 33 g/dL (32.0-37.0); MEAN CORPUSCULAR VOLUME 87.1 FL (81.0-99.0); MONOCYTES # (AUTO) 0.3 K/UL (0.1-1.30); MONOCYTES % (AUTO) 4.4 % (0.0-11.0); NEUTROPHILS # (AUTO) 5.5 K/UL (1.8-8.9); NEUTROPHILS % (AUTO) 71.2 % (38.5-71.5); PLATELET COUNT (AUTO) 163 K/UL (150-450); RED BLOOD CELL COUNT(AUTO) 4.03 MIL/UL (4.2-5.4); WHITE BLOOD COUNT (AUTO) 7.6 K/UL (4.0-11.2)
[2016-10-11 07:45] LABS: CREATININE 1.1 mg/dL (0.6-1.3); MAGNESIUM 2.1 mg/dL (1.8-2.4); PHOSPHOROUS 5.8 mg/dL (2.5-4.9); POTASSIUM 4.6 mmol/L (3.5-5.1)
--- NOTE | 2016-10-11 07:45 | NUR ---
START OF SHIFT Patient currently sleeping in bed and arouse to stimulation.Patient presents fatigued. Patient on contact isolation for MRSA. Patient has 22 g IV on left forearm with NS infusing at 125 ml/hr. Patient is on IV Zosyn and Vanco for elevated WBC. Patient has not had a BM in 5 days. Will administer stool softener this shift. Patient continues on 5 day Modified Subutex and Valium taper. Patient slept 9 hours. Patient given PRN Toradol for body aches per night nurse with effectiveness. Last CIWA 5 COWS 7 per shift supervisor melting. Patient currently sleeping in bed with bed locked and in lowest position and call wang within reach. Will provide safe and supportive environment. Will continue to monitor.
[2016-10-11 08:00] VITALS: BP 138/87
[2016-10-11] MEDS ORDERED: DIAZEPAM 5 MG TABLET PO SCH ×2 (09:00)
[2016-10-11] MEDS ORDERED: BUPRENORPHINE HCL 2 MG TAB.SUBL SL SCH ×2 (09:00)
[2016-10-11] MEDS: BACLOFEN 10 MG TABLET PO SCH (09:08)
[2016-10-11] MEDS: MULTIVITAMINS,THERAPEUTIC TABLET PO SCH (09:08)
[2016-10-11] MEDS: DICYCLOMINE HCL 20 MG TABLET PO SCH (09:08)
[2016-10-11] MEDS: GABAPENTIN 300 MG CAPSULE PO SCH (09:09)
[2016-10-11] MEDS: FLUTICASONE PROP NASAL SPRAY 16 GM BOTTLE NS SCH (09:10)
[2016-10-11] MEDS: MUPIROCIN 2% OINT 22 GM TUBE NS SCH (09:10)
[2016-10-11] MEDS: KETOROLAC TROMETHAMINE 30 MG INJ IM PRN (10:00)
--- NOTE | 2016-10-11 10:06 | NUR ---
PRN MEDS PRN IM Toradol given per pt request. Pt c/o generalized body pain 03/14. Will reassess
--- NOTE | 2016-10-11 10:40 | NUR ---
PRN REASSESSMENT Patient states pain is now 5/10. Will continue to monitor
--- NOTE | 2016-10-11 11:45 | NUR ---
PRN MEDS PRN Miralax given for constipation. Patient states she doesn't remember the last time she had a BM. Will reassess
--- NOTE | 2016-10-11 11:58 | NUR ---
Clinical pharmacy note-Vancomycin dosing per pharmacy Subjective: To continue Vancomycin dosing on this 41 year old patient for productive cough/ leukocytosis(R/O IE vs HCAP) ID noted that patient had history of MRSA endocarditis and pneumonia Objective: BUN 22 Scr 1.1 WBC 7.6 Temp 97.8 Ht 5'6" Wt 200 lbs Assessment/Plan: Will continue Vancomycin 1250mg IV every 13hrs for today. Third dose is due today at 2029. Will draw trough by 4th dose(ordered for 10/12 at 0900) for expected trough around 16. Will monitor renal function daily to adjust the dose is needed. Will follow daily.
[2016-10-11 12:00] VITALS: BP 92/52
--- NOTE | 2016-10-11 14:45 | NUR ---
Pt being combative in hallway and yelling at staff. Ivanna gonzalez called.
--- NOTE | 2016-10-11 16:16 | NUR ---
communication Pt had left the unit and smoked a cigarette, then pt stated that she wanted to return. Dr Thompson notified and stated that pt is not medically cleared to return to the unit d/t her noncompliance and her inability and unwillingness to be civil and respectful with staff members.
--- NOTE | 2016-10-11 16:18 | NUR ---
AMA NOTE Patient left AMA. Pt refused to comply with treatment. Doctor ordered room restrictions for patient and no patio access. Pt screaming and saying "I need to go smoke. I do not care. I am leaving." Pt educated about the risks and consequences of leaving AMA including seizure risk. Dr. Thompson and multiple staff members communicated with patient and explained risks of leaving against medical advice. Patient verbalizes understanding and was adamant about leaving. Multiple staff members, patient advocates, nurses, and administration attempted to redirect patient but had no success. Nicotine patch and Nicotine gum offered for nicotine replacements but patient refused. Pt stated she does not care and she is leaving. Breathing treatment was offered to patient prior to leaving but patient refused. Vital signs are WNL, skin is intact. IV was discontinued upon patient leaving. Patient denies S/I and H/I. Doctor Donna is aware of patient leaving. Patient was given a list of community resources, AMA forms explained and signed. All belongings were returned to patient. Patient left facility AMA on 10/11/16 at 1510. Addendum: 10/11/16 at 1622 by FERN ESPINAL RN Left facility at 1616
[2016-10-12] MEDS ORDERED: DIAZEPAM 5 MG TABLET PO SCH (09:00)
[2016-10-12] MEDS ORDERED: BUPRENORPHINE HCL 2 MG TAB.SUBL SL SCH (09:00)
[2016-10-12 23:11] LABS: *HCV QUANT HCV Not Detected IU/mL (.)
[2016-10-13] MEDS ORDERED: BUPRENORPHINE HCL 2 MG TAB.SUBL SL SCH (09:00)
[2016-10-13 09:09] LABS: COMPLEMENT, C3 SERUM 191 mg/dL (82-167); COMPLEMENT, C4 SERUM 35 mg/dL (14-44)
== END 2016-10-11 16:16 | disposition left against medical advice (07) | DRG 894 ==
LOC: SRC 13:20
PROVIDERS: ADMIT Internal Medicine; ATTEND Internal Medicine
PROC: HZ2ZZZZ Detoxification Services for Substance Abuse Treatment (ICD-10-PCS; principal; 2016-10-05)
PROC: HZ31ZZZ Individual Counseling for Substance Abuse Treatment, Behavioral (ICD-10-PCS; 2016-10-07)
PROC: HZ41ZZZ Group Counseling for Substance Abuse Treatment, Behavioral (ICD-10-PCS; 2016-10-09)
DX: F13.230 Sedative, hypnotic or anxiolytic dependence with withdrawal, uncomplicated (principal); F11.23 Opioid dependence with withdrawal; J20.9 Acute bronchitis, unspecified; Z90.49 Acquired absence of other specified parts of digestive tract; Z82.49 Family history of ischemic heart disease and other diseases of the circulatory system; Z86.14 Personal history of Methicillin resistant Staphylococcus aureus infection; Z87.01 Personal history of pneumonia (recurrent); Z22.322 Carrier or suspected carrier of Methicillin resistant Staphylococcus aureus; Z81.3 Family history of other psychoactive substance abuse and dependence; F17.210 Nicotine dependence, cigarettes, uncomplicated; F41.1 Generalized anxiety disorder; F41.0 Panic disorder [episodic paroxysmal anxiety]; I05.8 Other rheumatic mitral valve diseases; G47.00 Insomnia, unspecified; E86.0 Dehydration; B19.20 Unspecified viral hepatitis C without hepatic coma; Z76.5 Malingerer [conscious simulation]; Z78.9 Other specified health status; E86.1 Hypovolemia; F12.90 Cannabis use, unspecified, uncomplicated; R73.01 Impaired fasting glucose; R60.0 Localized edema
CPT/HCPCS: 36415; 70030-TC; 71010; 80307; 80346; 80361; 83605; 83735; 84100; 84443; 84703; 85025; 85610; 85651; 86140; 86160; 86162; 86580; 86592; 86705; 86803; 87040; 87070; 87077; 87340; 87400; 87521; 87806; 93005; 93307; A4663; G6040-TC; J1885; J2543; J3370; J3535; J7030; J7060; Q0162; Q0163